=== PATIENT | male | born 1985 | race African-American/Black ===

== ENCOUNTER 2017-07-15 19:45 | Emergency (ER) | payer OTHER ==
[~2017-07-15] VITALS: Ht 180.3 cm; Wt 77.1 kg
[2017-07-15 21:24] VITALS: BP 129/84
== END 2017-07-15 21:28 | disposition home or self-care (01) ==
LOC: ER 19:45
DX: M25.561 Pain in right knee (principal); F17.210 Nicotine dependence, cigarettes, uncomplicated; F10.99 Alcohol use, unspecified with unspecified alcohol-induced disorder